=== PATIENT | male | born 1970 | race African-American/Black ===

== ENCOUNTER → 2016-06-06 | Outpatient (CLI) | payer OTHER | LOC: M SMT 10:42 | PROVIDERS: ATTEND Nurse Practitioner Women's Health | DX: Z12.5 Encounter for screening for malignant neoplasm of prostate (principal); N50.819 Testicular pain, unspecified | CPT/HCPCS: 36415; 81001; 87086; G0103; G0463 ==

== ENCOUNTER → 2016-06-22 | Outpatient (CLI) | payer OTHER ==
--- NOTE | 2016-06-22 11:06 | REP ---
High-resolution scrotal sonography: History: Right testalgia. Findings: High-resolution bilateral scrotal sonography demonstrates an epididymal cyst in the head of the epididymis on the left measuring 1.5 x 0.6 x 1.4 cm. No intratesticular mass lesion is seen on either side. Testicular Doppler flow is normal bilaterally. Resistive indices are 0.60 on the right and 0.56 on the left by Doppler. There is no evidence of varicocele or significant hydrocele on either side. Right testis measures 4.5 x 2.0 x 2.9 cm. Left testicular dimensions are 4.4 x 2.3 x 3.4 cm. Impression: 1.5 cm cyst in the head of the epididymis on the left. Otherwise unremarkable bilateral scrotal sonography. Signed by Sawyer Thurman MD 06/22/2016 11:22 A
== END ==
LOC: M RAD 08:24
PROVIDERS: ATTEND Nurse Practitioner Women's Health
DX: N50.3 Cyst of epididymis (principal); N50.819 Testicular pain, unspecified

== ENCOUNTER → 2018-05-15 | Outpatient (CLI) | payer OTHER ==
[~2018-05-15] MED LIST: LIDOCAINE 1% MDV 20ML VIAL As Ordered ONE
--- NOTE | 2018-05-15 17:06 | REP ---
ULTRASOUND-GUIDED RIGHT POSTERIOR NECK NODULE BIOPSY The procedure was performed under the direct supervision of Dr. austin. The patient has a history of a palpable nodule in the right posterior neck. Preliminary ultrasound demonstrates a nine by 9 x 3.4 mm nodule. The risks and benefits of the procedure were explained to the patient and informed consent was obtained. The right posterior neck nodule was localized using ultrasound guidance. The skin was prepped and draped in a sterile fashion. 1% lidocaine was used as a local anesthetic. Using ultrasound guidance eight fine-needle aspirations were obtained using 25 gauge needles. The patient tolerated the procedure well and there were no immediate complications. After the appropriate amount of monitored convalescence the patient was discharged from the department. Reviewed by KAILASH John 05/15/2018 03:54 P Electronically Signed by Haider Austin MD 05/15/2018 04:57 P
--- NOTE | 2018-05-15 17:20 | REP ---
Clinical: Posterior right neck mass. Technique: Real time frost scale and color evaluation using linear high frequency transducer. Findings: Directed ultrasound examination at the site of palpable mass demonstrates a hypoechoic 9 x 3 x 9 mm subcutaneous relatively well circumscribed avascular lesion. Impression: Small subcutaneous lesion otherwise nonspecific by ultrasound evaluation. Electronically Signed by Baljit Serrano MD 05/15/2018 05:11 P
== END ==
LOC: M RADPRO 08:58
PROVIDERS: ATTEND Otolaryngology
DX: R22.1 Localized swelling, mass and lump, neck (principal)